=== PATIENT | male | born 1960 | race Caucasian/White ===

== ENCOUNTER 2019-01-10 18:21 | Inpatient (IN) | payer MEDICAID ==
[~2019-01-10] VITALS: Ht 167.6 cm; Wt 67.2 kg
[2019-01-10] MEDS ORDERED: ZOLPIDEM TARTRATE 10 MG TABLET PO PRN (19:30)
[2019-01-10] MEDS: LORazepam 2 MG TABLET PO PRN (20:16)
[2019-01-10] MEDS: HALOPERIDOL 5 MG TABLET PO PRN (20:16)
[2019-01-10 20:28] VITALS: BP 122/87
[2019-01-10] MEDS ORDERED: ACETAMINOPHEN 325 MG TABLET PO PRN (20:30)
[2019-01-10] MEDS ORDERED: IBUPROFEN 400 MG TABLET PO PRN (20:30)
[2019-01-10] MEDS ORDERED: LOPERAMIDE HCL 2 MG CAPSULE PO PRN (20:30)
[2019-01-10] MEDS ORDERED: CloNIDine HCL 0.1 MG TABLET PO PRN (20:30)
[2019-01-10] MEDS ORDERED: DOCUSATE SODIUM 100 MG CAPSULE PO PRN (20:30)
[2019-01-10] MEDS ORDERED: ALBUTEROL SULFATE HFA 90 MCG/PUFF 8 GM INHALER IH PRN (20:30)
[2019-01-10] MEDS ORDERED: PETROLATUM,WHITE 28 GM JELLY TP PRN (20:30)
[2019-01-10] MEDS ORDERED: MAGNESIUM HYDROXIDE SUSPENSION 30 ML UDCUP PO PRN (20:30)
[2019-01-10] MEDS ORDERED: ONDANSETRON HCL 4 MG TABLET PO PRN (20:30)
[2019-01-10] MEDS ORDERED: GuaiFENesin/D-METHORPHAN [SUGAR-FREE] 200-20MG/10 ML SYRUP UDCUP PO PRN (20:30)
[2019-01-10] MEDS ORDERED: NICOTINE 14 MG/24 HOUR PATCH TD PRN (20:30)
[2019-01-10] MEDS ORDERED: MAG HYDROX/AL HYDROX/SIMETH ES 30 ML SUSPENSION UDCUP PO PRN (20:30)
[2019-01-11 00:39] VITALS: BP 128/75
[2019-01-11 08:04] VITALS: BP 123/65
[2019-01-11 08:47] LABS: BASOPHILS % (AUTO) 0.8 % (0.0-2.0); EOSINOPHILS % (AUTO) 8.5 % (1.0-6.0); HEMATOCRIT 38.2 % (41-53); HEMOGLOBIN 12.7 g/dL (13.5-17.5); MEAN CORPUSCULAR HEMOGLOBIN 29.8 pg (26.0-34.0); MEAN CORPUSCULAR HGB CONC 33.3 G/dL (31.0-37.0); MEAN CORPUSCULAR VOLUME 89 fL (80-100); MONOCYTES # (AUTO) 0.6 K/uL (0.1-1.0); MONOCYTES % (AUTO) 7.7 % (2.0-9.0); NEUTROPHILS # (AUTO) 4.7 K/uL (1.8-7.7); PLATELET COUNT (AUTO) 270 K/uL (150-450); RED BLOOD CELL COUNT(AUTO) 4.27 MIL/uL (4.50-5.90); RED CELL DISTRIBUTION WIDTH 15.1 % (11.5-14.5)
[2019-01-11 08:56] LABS: HEMOGLOBIN A1C 5.7 % (4.5-6.2)
[2019-01-11 09:15] LABS: ALANINE AMINOTRANSFERASE 24 U/L (12-78); ALBUMIN 2.9 g/dL (3.4-5.0); ALKALINE PHOSPHATASE 67 U/L (46-116); ANION GAP 9 mmol/L (8-16); ASPARTATE AMINOTRANSFERASE 26 U/L (15-37); BILIRUBIN,TOTAL 0.2 mg/dL (0.1-1.0); CALCIUM, TOTAL 8.7 mg/dL (8.8-10.5); CARBON DIOXIDE 28 mmol/L (22-29); CHLORIDE 107 mmol/L (98-107); CHOL/HDL RATIO 4.5 (4.2-7.3); CHOLESTEROL 140 mg/dL (131-200); CREATININE 1.03 mg/dL (0.60-1.30); FREE T4 (FREE THYROXINE) 0.77 ng/dL (0.76-1.46); GLOMERULAR FILTR. RATE CALC > 60 mL/min (>60); GLUCOSE,RANDOM 89 mg/dL (70-110); HDL CHOLESTEROL 31 mg/dL (40-60); LDL CHOL (CALC.) 61 mg/dL (0-130); POTASSIUM 3.8 mmol/L (3.5-5.1); SODIUM SERUM 144 mmol/L (136-145); THYROID STIMULATING HORMONE 1.09 uIU/mL (0.36-3.74); TOTAL PROTEIN, SERUM 6.5 g/dL (6.4-8.2); TRIGLYCERIDES 242 mg/dL (15-150); UREA NITROGEN, BLOOD 12 mg/dL (7-18)
[2019-01-11] MEDS: RisperiDONE 2 MG TABLET PO SCH ×2 (12:28→20:38)
[2019-01-11] MEDS: LORazepam 2 MG TABLET PO PRN ×2 (13:36→20:39)
[2019-01-11 16:16] VITALS: BP 120/87
[2019-01-12 06:21] VITALS: BP 120/68
[2019-01-12 08:34] VITALS: BP 117/68
[2019-01-12] MEDS: FOLIC ACID 1 MG TABLET PO SCH (09:04)
[2019-01-12] MEDS: THIAMINE HCL 100 MG TABLET PO SCH (09:04)
[2019-01-12] MEDS: RisperiDONE 2 MG TABLET PO SCH ×2 (09:05→20:40)
[2019-01-12] MEDS: HALOPERIDOL 5 MG TABLET PO PRN (09:35)
[2019-01-12] MEDS: LORazepam 2 MG TABLET PO PRN (12:23)
[2019-01-12] MEDS: FERROUS SULFATE 325 MG EC TABLET PO SCH ×2 (12:34→17:00)
[2019-01-12 16:34] VITALS: BP 124/74
[2019-01-13 00:18] VITALS: BP 121/81
[2019-01-13] MEDS: FERROUS SULFATE 325 MG EC TABLET PO SCH (07:13)
[2019-01-13 08:15] VITALS: BP 123/83
[2019-01-13] MEDS: LORazepam 2 MG TABLET PO PRN (08:32)
[2019-01-13] MEDS: RisperiDONE 2 MG TABLET PO SCH (08:32)
[2019-01-13] MEDS: THIAMINE HCL 100 MG TABLET PO SCH (08:32)
[2019-01-13] MEDS: FOLIC ACID 1 MG TABLET PO SCH (08:32)
[2019-01-13] MEDS ORDERED: RISP2 PO (12:19)
[2019-01-13] MEDS ORDERED: FOLI1 PO (12:20)
[2019-01-13] MEDS ORDERED: FERR-89 PO (12:20)
[2019-01-13] MEDS ORDERED: THIA100T67 PO (12:21)
== END 2019-01-13 14:48 | disposition home or self-care (01) | DRG 751 ==
LOC: B3A 19:22 → B2S 01-12 10:00
DX: F29 Unspecified psychosis not due to a substance or known physiological condition (principal); E46 Unspecified protein-calorie malnutrition; D64.9 Anemia, unspecified; E78.5 Hyperlipidemia, unspecified; F10.10 Alcohol abuse, uncomplicated; Z79.899 Other long term (current) drug therapy; Z68.23 Body mass index [BMI] 23.0-23.9, adult
CPT/HCPCS: 83036; 84439; 84443; J3535